=== PATIENT | male | born 1990 | race Caucasian/White ===

== ENCOUNTER 2016-10-15 18:31 | Observation (INO) ==
[2016-10-15 19:56] LABS: Basophils % 0.2 %; Eosinophils # 0.1 K/mcL (0.0-0.6); Eosinophils % 0.7 %; Immature Granulocytes % 0.5 % (0-4); Lymphocytes # 2.2 K/mcL (0.6-4.6); Lymphocytes % 13.1 %; Mean Corpuscular HGB Conc 35.1 g/dL (31.6-35.5); Mean Corpuscular Hemoglobin 32.8 pg (28.0-33.3); Mean Corpuscular Volume 93.4 fL (83.0-100.0); Mean Platelet Volume 10.1 fL (9.4-12.4); Monocytes # 1.4 K/mcL (0.0-1.3); Monocytes % 8.1 %; Neutrophils # 12.9 K/mcL (1.6-8.9); Platelet Count 228 K/mcL (140-400); Red Blood Count 3.96 M/mcL (4.19-5.50); Red Cell Distribution Width 12.2 % (11.5-14.5); Segmented Neutrophils % 77.4 %
[2016-10-15] MEDS ORDERED: Vancomycin 1,250 MG in D5% in Water 250 ML IVPB ONE (20:06)
[2016-10-15] MEDS ORDERED: Piperacillin/Tazobactam 4.5 GM in D5% in Water (Mini-Bag+) 100 ML IVPB ONE (20:07)
[2016-10-15 20:12] LABS: Alanine Aminotransferase 8 Units/L (0-55); Albumin 3.6 g/dL (3.5-5.0); Albumin/Globulin Ratio 0.9 (1.1-2.2); Alkaline Phosphatase 59 Units/L (38-126); Aspartate Amino Transferase 13 Units/L (5-34); BUN/Creatinine Ratio 10 (6-26); Bilirubin,Total 0.4 mg/dL (0.2-1.2); Blood Urea Nitrogen 8 mg/dL (8-26); Calcium 9.5 mg/dL (8.6-10.8); Carbon Dioxide 27 mEq/L (19-29); Chloride 102 mEq/L (98-109); Globulin 3.8 g/dL (2.4-3.5); Glucose 109 mg/dL (70-99); Osmolality,Calculated 285 (280-300); Potassium 3.8 mEq/L (3.5-4.5); Sodium 138 mEq/L (136-145); Total Protein 7.4 g/dL (6.0-8.3); eGFR For African Americans > 60 (> 60); eGFR For Non-African Americans > 60 (> 60)
--- NOTE | 2016-10-15 22:24 | Emergency Department Note ---
Disposition Clinical Impression: Cellulitis Qualifiers: Site of cellulitis: extremity Site of cellulitis of extremity: lower extremity Laterality: left Qualified Code(s): L03.116 - Cellulitis of left lower limb Disposition: Admitted As Inpatient Condition: Good General Adult HPI - General Chief complaint: ED Extremity Problem,Nontraumatic Stated complaint: Left leg swelling Time Seen by Provider: 10/15/16 18:55 Source: patient Limitations: no limitations Nursing Notes Reviewed: Yes Vital Signs Reviewed: Yes - History of Present Illness HPI Narrative: 26-year-old male who presents with concern for cellulitis of the left foot. He works with the [employer] and developed a rash on his left foot with progressive pain and swelling. Ultimately he developed worsening pain today and worsening swelling with redness extending to the tibia fibular region. He had no fever. He had no recent trauma. He has no history of hypercoagulable state or previous DVTs. Pain Scale: 4 - Related Data Allergies Allergy/AdvReac Type Severity Reaction Status Date / Time No Known Allergies Allergy Verified 10/15/16 18:47 All systems ED: reviewed and negative except as stated. Past Medical History - Past Medical History Medical history: Reports: no medical history Psychiatric history: Reports: no psych history - Social History Smoking Status: Current every day smoker Smokeless Tobacco Status: No Alcohol use: Reports: none Drug use: Reports: none Physical Exam - General Limitations: no limitations General appearance: alert, in no apparent distress - Head Head exam: atraumatic - Eye Eye exam: Present: normal appearance - ENT ENT exam: normal exam - Neck Neck exam: Present: normal inspection - Chest Chest inspection: Present: normal inspection - Abdominal Exam Abdominal exam: Present: soft, Non-Tender - Male exam: Present: normal inspection - Extremities Exam Extremities exam: Present: tenderness, joint swelling, other (left foot rash with cellulitis and warmth) - Back Exam Back exam: Present: normal inspection - Neurological Exam Neurological exam: Present: alert, oriented X3, CN II-XII intact - Psychiatric Psychiatric exam: Present: normal affect, normal mood - Skin Skin exam: Present: warm, dry Course Vital Signs Temperature 98.1 F 10/15/16 18:45 Pulse Rate 95 10/15/16 18:45 Respiratory Rate 16 10/15/16 18:45 Blood Pressure 134/79 10/15/16 18:45 O2 Sat by Pulse Oximetry 98 10/15/16 18:45 Temperature 98.1 F 10/15/16 18:45 Pulse Rate 81 10/15/16 22:00 Respiratory Rate 16 10/15/16 22:17 Blood Pressure 127/77 10/15/16 22:17 O2 Sat by Pulse Oximetry 97 10/15/16 22:00 Oxygen Delivery Oxygen Delivery Room Air Medical Decision Making - MDM Narrative Medical decision making narrative: This gentleman has a fairly significant cellulitis of the left lower extremity extending from the toes to the mid tib-fib region. I would like to obtain a duplex to rule out venous thrombosis however they are not available to complete this this evening. The hospitalist team requested that I completed d-dimer and if it is positive proceed with Lovenox a minutes duration. I will defer Lovenox menstruation to the hospital team at this time. I do feel clinically this patient has significant cellulitis of the left lower extremity. He has significant soft tissue swelling. X-rays do not demonstrate foreign body or gas. Vancomycin as well as Zosyn were loan officer assistant. Blood cultures are administered. I did offer pain control but the patient declined. Plan to admit for IV antibiotic therapy and venous Doppler in the morning. - Medical Records Medical records reviewed: Yes I reviewed the patient's medical records. - Lab Data Lab results reviewed: Yes I reviewed the patient's lab results. Result diagrams: 10/15/16 19:33 10/15/16 19:33 Lab Results 10/15/16 10/15/16 10/15/16 Range/Units 19:33 19:33 21:47 WBC 16.7 H (4.3-11.1) K/mcL RBC 3.96 L (4.19-5.50) M/mcL Hgb 13.0 (12.9-16.9) g/dL Hct 37.0 L (37.5-50.1) % MCV 93.4 (83.0-100.0) fL MCH 32.8 (28.0-33.3) pg MCHC 35.1 (31.6-35.5) g/dL RDW 12.2 (11.5-14.5) % Plt Count 228 (140-400) K/mcL MPV 10.1 (9.4-12.4) fL Immature Gran % 0.5 (0-4) % Seg Neutrophils % 77.4 % Lymphocytes % 13.1 % Monocytes % 8.1 % Eosinophils % 0.7 % Basophils % 0.2 % Neutrophils # 12.9 H (1.6-8.9) K/mcL Lymphocytes # 2.2 (0.6-4.6) K/mcL Monocytes # 1.4 H (0.0-1.3) K/mcL Eosinophils # 0.1 (0.0-0.6) K/mcL Basophils # 0.0 (0.0-0.2) K/mcL D-Dimer 255 (0-500) ng/mLFEU Sodium 138 (136-145) mEq/L Potassium 3.8 (3.5-4.5) mEq/L Chloride 102 (98-109) mEq/L Carbon Dioxide 27 (19-29) mEq/L BUN 8 (8-26) mg/dL Creatinine 0.82 (0.72-1.25) mg/dL Est GFR ( Amer) > 60 (> 60) Est GFR (Non-Af Amer) > 60 (> 60) BUN/Creatinine Ratio 10 (6-26) Glucose 109 H (70-99) mg/dL Calculated Osmolality 285 (280-300) Calcium 9.5 (8.6-10.8) mg/dL Total Bilirubin 0.4 (0.2-1.2) mg/dL AST 13 (5-34) Units/L ALT 8 (0-55) Units/L Alkaline Phosphatase 59 (38-126) Units/L Serum Total Protein 7.4 (6.0-8.3) g/dL Albumin 3.6 (3.5-5.0) g/dL Globulin 3.8 H (2.4-3.5) g/dL Albumin/Globulin Ratio 0.9 L (1.1-2.2) - Radiology Data Radiology results reviewed: Yes I reviewed the patient's radiology results.
[2016-10-15] MEDS ORDERED: Naloxone 0.4 MG/ML INJ IVP PRN (22:33)
[2016-10-15] MEDS ORDERED: Acetaminophen 325 MG TABLET PO PRN (22:33)
--- NOTE | 2016-10-15 22:40 | Internal Med History&Physical ---
Date of Encounter: 10/15/16 Time of Encounter: 22:00 Assessment and Plan (1) Cellulitis Current visit: Yes Status: Acute Patient has skin redness, warmth. With elevated WBC. Consistent with cellulitis. - No signs of sepsis. - D-dimer negative. DVT is ruled out. - We will continue Vanco and Zosyn IV. Blood culture sent in emergency room. - Closely follow-up symptoms change. If swelling is getting worse quickly, may need CAT scan. Qualifiers: Site of cellulitis: extremity Site of cellulitis of extremity: lower extremity Laterality: left Qualified Code(s): L03.116 - Cellulitis of left lower limb (2) DVT prophylaxis Current visit: Yes Status: Acute Lovenox subcutaneously Internal Medicine - H&P: HPI Chief complaint: Left lower leg swelling with redness and warmth Admitted From: Home Plans for Post Hospital Care: Home History of present illness: Mr. Arevalo is a 26 year old male presents to ER for left lower leg and ankle swelling, pain, with skin redness and warmth for 1 day. Patient said since this morning he found ankle is painful, and there is a redness, warmness on the left lower leg and ankle area, with swelling. The pain is sharp and pressure- like, constant, 6-7 out of 10. Patient denies fever, nausea, vomiting, headache or lightheadedness. He has no chest pain or shortness of breath. He denies recent travel, or long-term bedrest, or recent surgery/injury. Patient was admitted as cellulitis. I discussed with patient regarding CODE STATUS. He is a full code. Past Med Surg Social Fam HX - Past Medical History Medical history: no medical history Psychiatric history: no psych history - Social History Smoking Status: Current every day smoker Smokeless Tobacco Status: No Alcohol use: none Drug use: none Internal Medicine - H&P: Meds Allergies No Known Allergies Allergy (Verified 10/15/16 18:47) All Systems PM: A 10-system review of systems was performed and is negative for pertinent findings except as documented above in the HPI. - Constitutional Vitals: Temp Pulse Resp BP Pulse Ox 98.1 F 81 16 127/77 97 10/15/16 18:45 10/15/16 22:00 10/15/16 22:17 10/15/16 22:17 10/15/16 22:00 General appearance: Present: A&O X 3, no acute distress, answers questions appropriately - Head Head exam: Present: atraumatic, normocephalic - Eye Eye exam: Present: PERRL, conjuntiva pink, sclera anicteric Pupils: Present: PERRL - Neck Neck exam general surgery: Present: supple, trachea midline. Absent: lymphadenopathy - Respiratory Respiratory exam: Present: CTAB. Absent: accessory muscle use, rales, rhonchi, wheezes - Cardiovascular Cardiovascular exam: Present: RRR, +S1, +S2. Absent: diastolic murmur, gallop, rubs, systolic murmur - GI/Abdominal GI/Abdominal exam: Present: normal bowel sounds, soft, no peritoneal signs. Absent: distended, tenderness - Extremities Exam Extremities exam: Present: warm, radial pulses palpable and symetrical. Absent : calf tenderness, cyanotic, pedal edema - Neurological Exam Neurological exam: Present: CN II-XII intact, oriented X3, no focal deficits. Absent: pronater drift, facial droop, speech deficit - Skin Skin exam: Present: dry, intact Additional comments: Left lower leg and ankle skin shows redness, warmth and with tenderness. No crepitus. No discharge Internal Med - H&P Results - Labs CBC & Chem 7: 10/15/16 19:33 10/15/16 19:33
[2016-10-16 03:52] LABS: Basophils % 0.3 %; Eosinophils # 0.2 K/mcL (0.0-0.6); Eosinophils % 1.8 %; Hematocrit 37.4 % (37.5-50.1); Hemoglobin 12.8 g/dL (12.9-16.9); Immature Granulocytes % 0.4 % (0-4); Lymphocytes # 2.5 K/mcL (0.6-4.6); Lymphocytes % 18.8 %; Mean Corpuscular HGB Conc 34.2 g/dL (31.6-35.5); Mean Corpuscular Hemoglobin 32.7 pg (28.0-33.3); Mean Corpuscular Volume 95.4 fL (83.0-100.0); Mean Platelet Volume 10.3 fL (9.4-12.4); Monocytes # 1.2 K/mcL (0.0-1.3); Neutrophils # 9.4 K/mcL (1.6-8.9); Platelet Count 220 K/mcL (140-400); Red Blood Count 3.92 M/mcL (4.19-5.50); Red Cell Distribution Width 12.3 % (11.5-14.5); Segmented Neutrophils % 69.7 %
[2016-10-16 04:07] LABS: BUN/Creatinine Ratio 12 (6-26); Blood Urea Nitrogen 10 mg/dL (8-26); Calcium 9.5 mg/dL (8.6-10.8); Carbon Dioxide 28 mEq/L (19-29); Chloride 104 mEq/L (98-109); Glucose 109 mg/dL (70-99); Osmolality,Calculated 288 (280-300); Potassium 4.3 mEq/L (3.5-4.5); Sodium 139 mEq/L (136-145); eGFR For African Americans > 60 (> 60); eGFR For Non-African Americans > 60 (> 60)
[2016-10-16] MEDS: Piperacillin/Tazobactam 3.375 GM in D5% in Water (Mini-Bag+) 100 ML IVPB SCH ×3 (05:34→20:26)
[2016-10-16] MEDS: *HR* Enoxaparin 40 MG/0.4 ML SYRINGE SQ SCH (05:35)
--- NOTE | 2016-10-16 09:42 | Internal Med Progress Note ---
<Robert Lucero - Last Filed: 10/16/16 09:40> Date of Encounter: 10/16/16 Time of Encounter: 09:40 - Assessment and plan (1) Cellulitis Current Visit: Yes Status: Acute Assessment and plan: Patient's cellulitis of the left ankle and foot with erythema extending up the left calf and dejesus midway. It is very warm and tender to palpation. There is a loculation on the posterior distal calf, concerning for tendon involvement. - Leukocytosis is improving - Vitals are stable patient is afebrile. Plan: - Continue vancomycin and Zosyn for broad spectrum antibiotic coverage This appears to be a staph infection but cannot rule out other bacteria. - Start topical ketoconazole cream twice a day application of both feet bilaterally. - MRI of the left lower extremity to evaluate for loculations and tendon involvement - Orthopedic consultation for evaluation and potential intervention. - Venous Doppler ultrasound of the left lower extremity for potential DVT given the presentation of left lower extremity swelling and tenderness. Qualifiers: Site of cellulitis: extremity Site of cellulitis of extremity: lower extremity Laterality: left Qualified Code(s): L03.116 - Cellulitis of left lower limb (2) Fungal infection of foot Current Visit: Yes Status: Acute Assessment and plan: Patient presents with fungal infection on his bilateral feet severe on the left foot, also on the palmar surfaces in between his fingers on his hands with breaks in the skin. This is likely athlete's foot, superimposed with a bacterial cellulitis. Plan: - As discussed above will apply daily, as all cream twice a day. - Patient to keep feet opened to the air and uncovered to keep dry Qualifiers: Qualified Code(s): B35.3 - Tinea pedis (3) Tobacco abuse Current Visit: Yes Status: Acute Assessment and plan: Patient is to have a pack a day cigarette smoking. He understands the importance of quitting and plans to quit after discharge. He rejects a nicotine patch. (4) DVT prophylaxis Current Visit: Yes Status: Acute Assessment and plan: Lovenox 40 mg subcutaneous daily. - Subjective Interval history: Mr. Arevalo 26M has been seen and evaluated patient bedside this morning. He is alert and awake interactive distress and interacting appropriately. He continues to have pain in his left ankle that is exacerbated with flexion or extension with a feeling of tightness and pulling both in his ankle and in the back of his calf. He explains that he has had a rash that has progressively gotten worse ability to sleep with the left foot as by them by far the worst. 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 He has seen a physician in the recent past was provided a topical antifungal with no improvement. He also says he has breaks in his hands bilaterally. He explains that the rash on his foot is itchy, and has had breaks in his skin and bleeds occasionally. He denies any fevers, chills, sweating, nausea vomiting diarrhea or constipation. He is tolerated the IV antibiotics thus far. - Constitutional Vitals: Temp Pulse Resp BP Pulse Ox 97.9 F 67 16 110/73 97 10/16/16 06:59 10/16/16 06:59 10/16/16 06:59 10/16/16 06:59 10/16/16 06:59 General appearance: Present: A&O X 3, no acute distress, answers questions appropriately - Head Head exam: Present: atraumatic, normocephalic - Eye Eye exam: Present: PERRL, conjuntiva pink, sclera anicteric Pupils: Present: PERRL - ENT ENT exam: Present: mucous membranes moist - Neck Neck exam general surgery: Present: supple, trachea midline. Absent: lymphadenopathy - Respiratory Respiratory exam: Present: CTAB. Absent: accessory muscle use, rales, rhonchi, wheezes - Cardiovascular Cardiovascular exam: Present: RRR, +S1, +S2. Absent: diastolic murmur, gallop, rubs, systolic murmur - GI/Abdominal GI/Abdominal exam: Present: normal bowel sounds, soft, no peritoneal signs. Absent: distended, tenderness - Extremities Exam Additional comments: Patient has breaks in his skin with very dry skin on both of his hands on the palmar surfaces and in between his fingers. On his bilateral feet he demonstrates breaks between his toes and on the dorsum of his feet there is very dry and scaly skin with signs of fungal infection severe on the left. His feet give off a very malodorous scent. He has erythema and edema representing cellulitis with significant swelling around his left ankle and loculation around the distal portion of his near the Achilles tendons. The erythema extends midway up his dejesus with 1+ pitting edema. The right ankle and lower extremity does not demonstrate cellulitis. The patient is able to wiggle his toes and is able to move his ankle without severe pain. Pulses are 2+ bilateral with appropriate capillary refill. - Neurological Exam Neurological exam: Present: alert, oriented X3, no focal deficits. Absent: pronater drift, facial droop, speech deficit - Psychiatric Psychiatric exam: Present: normal affect, normal mood Internal Medicine: Result - Labs CBC & Chem 7: 10/16/16 03:21 10/16/16 03:21 Labs: Short CBC 10/16/16 Range/Units 03:21 WBC 13.5 H (4.3-11.1) K/mcL Hgb 12.8 L (12.9-16.9) g/dL Hct 37.4 L (37.5-50.1) % Plt Count 220 (140-400) K/mcL Neutrophils # 9.4 H (1.6-8.9) K/mcL BMP 10/16/16 03:21 Sodium 139 Potassium 4.3 Chloride 104 Carbon Dioxide 28 BUN 10 Creatinine 0.85 Glucose 109 H Calcium 9.5 - ABG Interpretation ABG results: PT/INR, D-dimer D-Dimer 255 ng/mLFEU (0-500) 10/15/16 21:47 Consult Discharge Plan - Plan Referrals: NO,PCP [Primary Care Provider] - <Dean Zavala - Last Filed: 10/16/16 14:07> Date of Encounter: 10/16/16 - Constitutional Vitals: Temp Pulse Resp BP Pulse Ox 97.9 F 68 14 151/87 98 10/16/16 11:33 10/16/16 11:33 10/16/16 11:33 10/16/16 11:33 10/16/16 11:33 Internal Medicine: Result - Labs CBC & Chem 7: 10/16/16 03:21 10/16/16 03:21 Labs: Short CBC 10/16/16 Range/Units 03:21 WBC 13.5 H (4.3-11.1) K/mcL Hgb 12.8 L (12.9-16.9) g/dL Hct 37.4 L (37.5-50.1) % Plt Count 220 (140-400) K/mcL Neutrophils # 9.4 H (1.6-8.9) K/mcL BMP 10/16/16 03:21 Sodium 139 Potassium 4.3 Chloride 104 Carbon Dioxide 28 BUN 10 Creatinine 0.85 Glucose 109 H Calcium 9.5 - ABG Interpretation ABG results: PT/INR, D-dimer D-Dimer 255 ng/mLFEU (0-500) 10/15/16 21:47 - Impressions Impressions Lower Extremity MRI 10/16/16 09:35 IMPRESSION: No evidence of Achilles tendinosis or tear. Findings as above likely representing a cellulitis most prominent along the posterior and medial aspect of the ankle. No defined fluid collection. Mild posterior tibialis, flexor digitorum longus, and peroneal tenosynovitis. Findings as above concerning for split tear of the peroneus brevis. D/ / Jenn Good MD / Jenn Good MD Interpreting Provider: Jenn Good MD - Attending Attestation I examined this patient and my medical decision-making was reviewed with the Resident Physician, Dr. Lucero. I agree with the documented findings, disposition and treatment plan as described except to the extent set forth below. Patient presented with left lower extremity swelling and pain. On exam he is in no acute distress awake alert oriented. Heart with S1-S2. Abdomen is soft. Extremities: Left ankle and lower calf soft tissue edema and erythema of the skin extending into the dorsum of the foot, tenderness palpation in multiple yellow patches and scabbed wounds with no discharge or fluctuance palpated. Cellulitis of the left lower leg and foot with suspected MRSA: Obtain MRI of the left lower extremity, consult podiatry, we will treat him with vancomycin and Zosyn. He is at high risk for morbidity mortality and complications due to IV vancomycin which requires blood level monitoring for toxicity.
[2016-10-16] MEDS: Vancomycin 1,250 MG in D5% in Water 250 ML IVPB SCH ×2 (11:39→23:45)
[2016-10-16] MEDS: Ketoconazole 2% CRM 15 GM TUBE TP SCH ×2 (14:47→20:31)
[2016-10-16] MEDS: Clotrimazole/Betameth Dip CRM 45 APPL/45 GM TUBE TP SCH (20:29)
[2016-10-16] MEDS ORDERED: Vancomycin 1,250 MG in D5% in Water 250 ML IVPB SCH (21:00)
[2016-10-17 05:13] LABS: Basophils # 0.1 K/mcL (0.0-0.2); Basophils % 0.6 %; Eosinophils # 0.2 K/mcL (0.0-0.6); Eosinophils % 2.4 %; Hematocrit 36.4 % (37.5-50.1); Hemoglobin 12.7 g/dL (12.9-16.9); Immature Granulocytes % 0.5 % (0-4); Lymphocytes # 2.5 K/mcL (0.6-4.6); Lymphocytes % 29.2 %; Mean Corpuscular HGB Conc 34.9 g/dL (31.6-35.5); Mean Corpuscular Hemoglobin 32.9 pg (28.0-33.3); Mean Corpuscular Volume 94.3 fL (83.0-100.0); Mean Platelet Volume 10.4 fL (9.4-12.4); Monocytes # 0.7 K/mcL (0.0-1.3); Platelet Count 218 K/mcL (140-400); Red Blood Count 3.86 M/mcL (4.19-5.50); Red Cell Distribution Width 12.2 % (11.5-14.5); Segmented Neutrophils % 59.3 %
[2016-10-17 05:30] LABS: Alanine Aminotransferase 7 Units/L (0-55); Albumin 3.2 g/dL (3.5-5.0); Albumin/Globulin Ratio 0.8 (1.1-2.2); Alkaline Phosphatase 49 Units/L (38-126); Aspartate Amino Transferase 12 Units/L (5-34); BUN/Creatinine Ratio 12 (6-26); Bilirubin,Total 0.2 mg/dL (0.2-1.2); Blood Urea Nitrogen 10 mg/dL (8-26); Calcium 9.2 mg/dL (8.6-10.8); Carbon Dioxide 28 mEq/L (19-29); Chloride 105 mEq/L (98-109); Globulin 3.9 g/dL (2.4-3.5); Glucose 105 mg/dL (70-99); Osmolality,Calculated 289 (280-300); Potassium 4.1 mEq/L (3.5-4.5); Sodium 140 mEq/L (136-145); Total Protein 7.1 g/dL (6.0-8.3); eGFR For African Americans > 60 (> 60); eGFR For Non-African Americans > 60 (> 60)
[2016-10-17] MEDS: *HR* Enoxaparin 40 MG/0.4 ML SYRINGE SQ SCH (06:28)
[2016-10-17] MEDS: Piperacillin/Tazobactam 3.375 GM in D5% in Water (Mini-Bag+) 100 ML IVPB SCH ×3 (06:29→23:45)
[2016-10-17] MEDS: Clotrimazole/Betameth Dip CRM 45 APPL/45 GM TUBE TP SCH ×2 (09:00→20:10)
[2016-10-17] MEDS: Ketoconazole 2% CRM 15 GM TUBE TP SCH ×2 (09:00→20:16)
--- NOTE | 2016-10-17 12:24 | Podiatry Consult Note ---
Date of Encounter: 10/17/16 Time of Encounter: 06:21 Assessment and Plan (1) Fungal infection of foot Current visit: Yes Status: Acute Improvement noted, MRI indicates no drainable lesion. -Ok with current plan of treatment and once the WBC is stable it would be fine to D/C on oral antibiotics for a week or so and topical antifungal for 4 weeks. -Patient can follow up with me 2-4 weeks after discharge. -Consider possible dermatology consult for possible psoriasis as differential diagnosis Qualifiers: Qualified Code(s): B35.3 - Tinea pedis History of Present Illness Chief complaint: infection foot HPI: Mr. Arevalo is a 26 year old male who presents with a bacterial infection secondary to a fungal infection on his feet. Patient relates that he had increasing pain and swelling in his left leg after which she presented to the emergency department. Patient relates that he frequently has skin issues and has seen dermatology but continues to have flareups on occasion. Past Med Surg Social Fam HX - Past Medical History Medical history: no medical history Psychiatric history: no psych history - Past Surgical History Surgical History: no surgical history - Social History Smoking Status: Current every day smoker Packs per day: <1 Smokeless Tobacco Status: No Alcohol use: none Drug use: none Medications and Allergies No Known Home Drugs 10/16/16 [History] Allergies No Known Allergies Allergy (Verified 10/15/16 18:47) All Systems Reviewed: A 10-system review of systems was performed and is negative for pertinent findings except as documented above in the HPI. Physical Exam - Constitutional Vitals: Temp Pulse Resp BP Pulse Ox 98.4 F 70 15 117/76 98 10/17/16 11:31 10/17/16 11:31 10/17/16 11:31 10/17/16 11:31 10/17/16 11:31 Exam: Patient is awake, alert, and oriented 3. Patient is in no acute distress. Pedal pulses palpable. Capillary fill time intact to digits 1 through 5 bilaterally. There is noted to be skin irritation noted interdigitally on the left foot and slightly to the right foot. The left hand also has mild skin irritation consistent with tinea pedis. There is noted to be cracks in the skin and open wounds or small similar to abrasions. There is noted to be erythema along the dorsum of the left foot extending into the left leg with edema. Sensation grossly intact to light touch to the level of the digits. Results - Labs Result Diagrams: 10/17/16 04:31 10/17/16 04:31 Labs: Abnormal lab results RBC 3.86 M/mcL (4.19-5.50) L 10/17/16 04:31 Hgb 12.7 g/dL (12.9-16.9) L 10/17/16 04:31 Hct 36.4 % (37.5-50.1) L 10/17/16 04:31 Glucose 105 mg/dL (70-99) H 10/17/16 04:31 Albumin 3.2 g/dL (3.5-5.0) L 10/17/16 04:31 Globulin 3.9 g/dL (2.4-3.5) H 10/17/16 04:31 Albumin/Globulin Ratio 0.8 (1.1-2.2) L 10/17/16 04:31 Vancomycin Trough 9.2 mcg/mL (10-20) L 10/17/16 09:32 H & H 10/17/16 Range/Units 04:31 Hgb 12.7 L (12.9-16.9) g/dL Hct 36.4 L (37.5-50.1) % All other labs normal. Consult Discharge Plan - Plan Referrals: NO,PCP [Primary Care Provider] -
[2016-10-17] MEDS: Vancomycin 1,250 MG in D5% in Water 250 ML IVPB SCH ×2 (13:14→21:49)
--- NOTE | 2016-10-17 19:09 | Internal Med Progress Note ---
Date of Encounter: 10/17/16 Time of Encounter: 12:00 - Assessment and plan (1) Cellulitis Current Visit: Yes Status: Acute Assessment and plan: 10/17/2016: Continue with broad-spectrum IV antibiotics, clinically improving. Follow-up blood cultures. If continued improvement is seen consider switching to oral antibiotics. MRI of the foot and ankle shows findings consistent with cellulitis, no abscess or phlegmon, tenosynovitis of peroneus tendon. Patient was evaluated by podiatry. I will order weightbearing as tolerated. PT evaluation. Avoid fluoroquinolones on discharge due to possible tendon damage. 10/16/2016: Patient's cellulitis of the left ankle and foot with erythema extending up the left calf and dejesus midway. It is very warm and tender to palpation. There is a loculation on the posterior distal calf, concerning for tendon involvement. - Leukocytosis is improving - Vitals are stable patient is afebrile. Plan: - Continue vancomycin and Zosyn for broad spectrum antibiotic coverage This appears to be a staph infection but cannot rule out other bacteria. - Start topical ketoconazole cream twice a day application of both feet bilaterally. - MRI of the left lower extremity to evaluate for loculations and tendon involvement - Orthopedic consultation for evaluation and potential intervention. - Venous Doppler ultrasound of the left lower extremity for potential DVT given the presentation of left lower extremity swelling and tenderness. Qualifiers: Site of cellulitis: extremity Site of cellulitis of extremity: lower extremity Laterality: left Qualified Code(s): L03.116 - Cellulitis of left lower limb (2) DVT prophylaxis Current Visit: Yes Status: Acute Assessment and plan: Lovenox 40 mg subcutaneous daily. (3) Fungal infection of foot Current Visit: Yes Status: Acute Assessment and plan: 10/17/2016: Rash of the left foot is being treated with antifungal cream and shows tremendous improvement over the last 1 day. His plantar and palmar rash likely secondary to chronic fungal dermatitis being treated with antifungal and topical steroid cream also shows improvement. Consider referral to dermatology outpatient after cellulitis is being treated. 10/16/2016: Patient presents with fungal infection on his bilateral feet severe on the left foot, also on the palmar surfaces in between his fingers on his hands with breaks in the skin. This is likely athlete's foot, superimposed with a bacterial cellulitis. Plan: - As discussed above will apply daily, as all cream twice a day. - Patient to keep feet opened to the air and uncovered to keep dry Qualifiers: Qualified Code(s): B35.3 - Tinea pedis (4) Tobacco abuse Current Visit: Yes Status: Acute Assessment and plan: Patient is to have a pack a day cigarette smoking. He understands the importance of quitting and plans to quit after discharge. He rejects a nicotine patch. - Subjective Interval history: Patient reports improvement in his left lower extremity swelling and pain over the last 24 hours. His left foot rash has also improved and some of scaly lesions fell off. - Constitutional Vitals: Temp Pulse Resp BP Pulse Ox 98.1 F 71 14 104/65 97 10/17/16 14:40 10/17/16 14:40 10/17/16 14:40 10/17/16 14:40 10/17/16 14:40 General appearance: Present: A&O X 3, no acute distress, answers questions appropriately - Respiratory Respiratory exam: Present: CTAB. Absent: accessory muscle use, rales, rhonchi, wheezes - Cardiovascular Cardiovascular exam: Present: RRR, +S1, +S2. Absent: diastolic murmur, gallop, rubs, systolic murmur - GI/Abdominal GI/Abdominal exam: Present: normal bowel sounds, soft, no peritoneal signs. Absent: distended, tenderness - Extremities Exam Extremities exam: Present: warm, radial pulses palpable and symetrical. Absent : calf tenderness, cyanotic, pedal edema - Skin Additional comments: Left foot dorsal area erythema with dry scaly skin and cracked skin. No drainage. Left ankle and lower calf area with soft tissue swelling and redness improved from yesterday. Internal Medicine: Result - Labs CBC & Chem 7: 10/17/16 04:31 10/17/16 04:31 Labs: Short CBC 10/17/16 Range/Units 04:31 WBC 8.5 (4.3-11.1) K/mcL Hgb 12.7 L (12.9-16.9) g/dL Hct 36.4 L (37.5-50.1) % Plt Count 218 (140-400) K/mcL Neutrophils # 5.0 (1.6-8.9) K/mcL BMP 10/17/16 04:31 Sodium 140 Potassium 4.1 Chloride 105 Carbon Dioxide 28 BUN 10 Creatinine 0.85 Glucose 105 H Calcium 9.2 Liver Function 10/17/16 Range/Units 04:31 Total Bilirubin 0.2 (0.2-1.2) mg/dL AST 12 (5-34) Units/L ALT 7 (0-55) Units/L Alkaline Phosphatase 49 (38-126) Units/L Albumin 3.2 L (3.5-5.0) g/dL - ABG Interpretation ABG results: PT/INR, D-dimer D-Dimer 255 ng/mLFEU (0-500) 10/15/16 21:47 Consult Discharge Plan - Plan Referrals: Aleah Chan, [employer] [Advanced Practice Nurse] - 11/02/16 9:00 am (Please bring to your appt. your photo ID, Insurance card, any medications you are on, and your new patient packet. If you need to cancel, please give a 24 hour notice. Thank you)
[2016-10-18 05:36] LABS: Basophils # 0.1 K/mcL (0.0-0.2); Basophils % 0.7 %; Eosinophils # 0.3 K/mcL (0.0-0.6); Eosinophils % 3.1 %; Hematocrit 37.1 % (37.5-50.1); Immature Granulocytes % 0.4 % (0-4); Lymphocytes # 2.8 K/mcL (0.6-4.6); Lymphocytes % 33.9 %; Mean Corpuscular Hemoglobin 32.8 pg (28.0-33.3); Mean Corpuscular Volume 93.7 fL (83.0-100.0); Mean Platelet Volume 10.4 fL (9.4-12.4); Monocytes # 0.5 K/mcL (0.0-1.3); Monocytes % 6.5 %; Neutrophils # 4.5 K/mcL (1.6-8.9); Platelet Count 239 K/mcL (140-400); Red Blood Count 3.96 M/mcL (4.19-5.50); Red Cell Distribution Width 12.2 % (11.5-14.5); Segmented Neutrophils % 55.4 %
[2016-10-18 05:50] LABS: BUN/Creatinine Ratio 13 (6-26); Blood Urea Nitrogen 11 mg/dL (8-26); Calcium 9.4 mg/dL (8.6-10.8); Carbon Dioxide 27 mEq/L (19-29); Chloride 104 mEq/L (98-109); Glucose 102 mg/dL (70-99); Osmolality,Calculated 288 (280-300); Potassium 3.8 mEq/L (3.5-4.5); Sodium 139 mEq/L (136-145); eGFR For African Americans > 60 (> 60); eGFR For Non-African Americans > 60 (> 60)
[2016-10-18] MEDS: *HR* Enoxaparin 40 MG/0.4 ML SYRINGE SQ SCH (06:09)
[2016-10-18] MEDS: Piperacillin/Tazobactam 3.375 GM in D5% in Water (Mini-Bag+) 100 ML IVPB SCH (06:11)
[2016-10-18 07:04] VITALS: BP 112/72
[2016-10-18] MEDS: Clotrimazole/Betameth Dip CRM 45 APPL/45 GM TUBE TP SCH (09:26)
[2016-10-18] MEDS: Ketoconazole 2% CRM 15 GM TUBE TP SCH (09:30)
--- NOTE | 2016-10-18 09:45 | Discharge Summary ---
Date of Encounter: 10/18/16 Time of Encounter: 09:42 - Discharge Diagnosis (1) Cellulitis Priority: Primary Status: Acute Comments: severe left ankle cellulitis Qualifiers: Site of cellulitis: extremity Site of cellulitis of extremity: lower extremity Laterality: left Qualified Code(s): L03.116 - Cellulitis of left lower limb (2) Fungal infection of foot Priority: Secondary Status: Acute Qualifiers: Laterality: bilateral Qualified Code(s): B35.3 - Tinea pedis (3) Tobacco abuse Priority: Secondary Status: Acute (4) DVT prophylaxis Priority: Secondary Status: Acute - Discharge Medications Prescriptions: Doxycycline 100 mg PO BID #10 capsule Ketoconazole 2% CRM [Nizoral Cream] 1 appl TP BID #2 tube Home Medications: Doxycycline 100 mg PO BID #10 capsule 10/18/16 [Rx] Ketoconazole 2% CRM [Nizoral Cream] 1 appl TP BID #2 tube 10/18/16 [Rx] Allergies/Adverse Reactions: Allergies No Known Allergies Allergy (Verified 10/15/16 18:47) Procedures/tests Complete & Pending: Procedures Performed prior 72 hours Category Date Time Status MR lower leg LT wo/w con [MR] Stat MRI 10/16/16 09:35 Completed Venous Doppler [EV venous imaging LE LT] Stat Y 10/16/16 09:36 Completed Date of admission: 10/15/16 22:00 Primary care physician: Aleah Chan CNP Consults: 10/16/16 09:55 Consult to Podiatry [CONS] Routine Consulting Provider: [facility] Reason for Consult: Left foot fungal infection with ankle and calf cellulitis. Concern for achillis tendon involvement. Call Completed: Yes 10/17/16 19:31 OT [Consult to Occupational Therapy] [CONS] Routine Comment: Evaluate, develop and implement POC Reason for Consult: Extensive left lower extremity cellulitis PT [Consult to Physical Therapy] [CONS] Routine Comment: Evaluate, develop and implement POC Reason for Consult: Extensive left lower extremity cellulitis. - Patient Status Disposition: Home, Self-Care Condition: Good - Discharge Instructions Follow Up With: Aleah Chan CNP [Primary Care Provider] - 11/02/16 9:00 am (Please bring to your appt. your photo ID, Insurance card, any medications you are on, and your new patient packet. If you need to cancel, please give a 24 hour notice. Thank you) Forms: ED Satisfaction Letter Additional Instructions: Follow up with primary care physician in 1-2 weeks. Complete 5 more days of doxycycline, avoid sun exposure. No strenuous activity for 2 weeks until follow up appointment with orthopedic surgery due to possible split tear of the peroneus brevis. Complete 6 weeks of topical ketoconazole. Quit smoking - Diet and Activity Activity: increase activity as tolerated Diet: regular diet Hospital course: Mr. Arevalo is a 26 year old male presented to the ER for left lower leg and ankle swelling, pain, with skin redness and warmth for 1 day. Patient said since this morning he found ankle was painful, and there is a redness, warmness on the left lower leg and ankle area, with swelling. The pain is sharp and pressure-like, constant, 6-7 out of 10. Patient denies fever, nausea, vomiting , headache or lightheadedness. . Patient was admitted for acute cellulitis of the left ankle. Was started on vancomycin and Zosyn. Podiatry was consulted and did not recommend any surgical procedure as the MRI did not show any abscess, although it showed split tear of the peroneus brevis , also showed mild posterior tibialis, flex or digitorum longus and peroneal tenosynovitis. The patient has improved considerably, risks were explained and the option to switch to another IV antibiotic ( ancef) monitor one mor day was given, he preferrs to be discharged on doxycycline for 5 more days to complete 7 days of antibiotics. Was started on clotrimazole and ketoconazole for a severe fugal infection in both feet. Time spent discussing smoking cessation with patient: 3 to 10 minutes - Time Spent with Patient Total time spent providing and/or coordinating discharge services: Greater than 30 minutes (40 min) - Constitutional Vitals: Temp Pulse Resp BP Pulse Ox 97.8 F 56 17 112/72 98 10/18/16 06:59 10/18/16 06:59 10/18/16 06:59 10/18/16 06:59 10/18/16 06:59 General appearance: Present: A&O X 3, no acute distress, answers questions appropriately - Head Head exam: Present: atraumatic, normocephalic - Eye Eye exam: Present: PERRL, conjuntiva pink, sclera anicteric Pupils: Present: PERRL - Neck Neck exam general surgery: Present: supple, trachea midline. Absent: lymphadenopathy - Respiratory Respiratory exam: Present: CTAB. Absent: accessory muscle use, rales, rhonchi, wheezes - Cardiovascular Cardiovascular exam: Present: RRR, +S1, +S2. Absent: diastolic murmur, gallop, rubs, systolic murmur - GI/Abdominal GI/Abdominal exam: Present: normal bowel sounds, soft, no peritoneal signs. Absent: distended, tenderness - Extremities Exam Extremities exam: Present: warm, radial pulses palpable and symetrical. Absent : calf tenderness, cyanotic, pedal edema Additional comments: erythema has resolved on the left ankle. Severe fungal in multiple interdigit feet areas persist - Neurological Exam Neurological exam: Present: CN II-XII intact, oriented X3, no focal deficits. Absent: pronater drift, facial droop, speech deficit - Skin Skin exam: Present: dry, intact
--- NOTE | 2016-10-18 10:18 | Venous Imaging Report ---
LE Venous Duplex Patient Name:Unruly Arevalo Order Number:[id number] Procedure Date:10/16/2016 Date:1990Age:26 yrs Gender:Male Location:[facility] Room #: [id number] Tumblers Supervisor:Inez Honeycutt Referring MD:Robert Lucero DO jeeper operator:None Reading MD:Camron Dyson MD Primary Indications:risk for DVT Secondary Indications: Impressions: Left lower extremity: normal superficial and deep exam. Findings Prior Study: No prior study available for comparison. Lower Extremity Venous Duplex Side Vein Compress Spontaneous Flow Augment Diameter (cm) Depth (cm) Left Saphenofemoral Junction Normal Yes Phasic Yes Left Great Saphenous Normal Yes Phasic Yes Left Lesser Saphenous Normal Yes Phasic Yes Right Common Femoral Normal Yes Phasic Yes Left Distal Iliac Normal Yes Phasic Yes Left Common Femoral Normal Yes Phasic Yes Left Superficial Femoral Normal Yes Phasic Yes Left Popliteal Normal Yes Phasic Yes Left Posterior Tibial Normal Yes Phasic Yes Left Peroneal Normal Yes Phasic Yes Updated by Camorn Dyson MD on 10/18/2016 10:12:05 AM electronically signed on 10/18/2016 10:12:16 AM with status of Final
[2016-10-18] MEDS ORDERED: Aminoglycoside Consult 1 EACH MC ONE (11:39)
== END 2016-10-18 11:40 | disposition home or self-care (01) ==
LOC: EMEROO 18:31 → 3ANU 18:31 → SUATTDRO 22:00 → 3ANU 22:22
PROVIDERS: ADMIT Internal Medicine; ATTEND Internal Medicine